=== PATIENT | female | born 1995 | race African-American/Black ===

== ENCOUNTER 2025-05-10 09:39 | Emergency (ER) | payer OTHER, SELFPAY ==
--- NOTE | ~2025-05-10 | XR_ITS ---
Examination: XR chest 1V Clinical History: Cough Comparison: None Technique: PA and Lateral Findings: Cardiomediastinal silhouette normal size and configuration. Lungs clear. No acute bony abnormality. IMPRESSION: 1. No acute cardiopulmonary findings. Reviewed, dictated and finalized at location R.
[2025-05-10 09:48] VITALS: BP 134/78; PULSE 66; RESP 20; TEMP 36.4; O2SAT 100
[2025-05-10 11:05] VITALS: O2SAT 99
[2025-05-10 11:40] LABS: Influenza A QL RT-PCR Negative (Negative); Influenza B QL RT-PCR Negative (Negative); RSV RNA, RT-PCR Negative (Negative); SARS-CoV-2 RNA PCR Negative (Negative)
--- NOTE | 2025-05-10 11:53 | ED.URI ---
HPI - URI/Sore Throat General Chief Complaint: Upper Respiratory Infection Stated Complaint: Cough, Upper Respiratory Issues Time Seen by Provider: 05/10/25 11:00 Source: patient Mode of arrival: ambulatory Limitations: no limitations History of Present Illness HPI Narrative: Patient presents with report of a cough and in general upper respiratory symptoms that started on SaturdayMay 02. She has had a frontal headache and rhinorrhea as well as congestion. She has been trialing [id number] medications such as a cold and cough congestion medication and TheraFlu but seems to be getting worse. Denies any sore throat. No distinctly no sick contacts however works at [employer] twice so interacts with a lot of people who might have been sick. No fevers or chills. Denies any underlying respiratory conditions. She does not smoke cigarettes but she does endorse smoking marijuana. She has had a cough that is alternate between being dry with occasionally productive of mucus. Denies any shortness of breath. She has developed some mild upper chest pain after coughing but states it's not too bad. States her PCP is through [facility]. Related Data Allergies Allergy/AdvReac Type Severity Reaction Status Date / Time tramadol Allergy Unknown Hives Verified 05/10/25 09:51 [facility] Social History Social History Smoking status: Never smoker Substance use type: marijuana Other substance usage details: smokes Occupation/Education: occupation Additional occupation/education comments: [employer] Ex[employer] Narrative: GENERAL: Well-appearing, well-nourished, and in no acute distress. HEAD: Normocephalic, atraumatic. EYES: Non injected, non icteric ENT: No epistaxis but there is nasal congestion. Gross auditory acuity intact. Very mild tenderness to palpation of maxillary sinuses NECK: Supple. No meningismus. CHEST: Speaking in full sentences. No respiratory distress. HEART: Regular rate and rhythm. . ABDOMEN: Obese but Soft, No rigidity or guarding. Not peritoneal EXTREMITIES: Normal range of motion. SKIN: Warm, dry, no rash. NEURO: No focal deficits. Alert and oriented. Answering questions. Following commands. Normal speech without aphasia or dysarthria. PSYCH: Normal mood and affect. Course Vital Signs Vital signs: Vital Signs Temperature 97.6 F 05/10/25 09:48 Pulse Rate 66 05/10/25 09:48 Respiratory Rate 20 05/10/25 09:48 Blood Pressure 134/78 05/10/25 09:48 Pulse Oximetry 100 05/10/25 09:48 Oxygen Delivery Room Air 05/10/25 09:48 Temperature 97.6 F 05/10/25 09:48 Pulse Rate 66 05/10/25 09:48 Respiratory Rate 20 05/10/25 09:48 Blood Pressure 134/78 05/10/25 09:48 Pulse Oximetry 99 05/10/25 11:05 Oxygen Delivery Room Air 05/10/25 11:05 MDM - URI/Sore Throat MDM Narrative Medical decision making narrative: Patient presents with report of generalized upper respiratory concerns in particular rhinorrhea, congestion, a cough, and a frontal headache. Has been using [id number]-[id number] medications. No fevers or chills. In the emergency department they are afebrile with vital signs within normal limits. No evidence of pneumonia. We discussed that this represents bronchitis and this is usually viral in atrial although her viral swab was negative. Noted that we do not treat this with antibiotics and there is also no role for steroids given no cor morbidities and no need for inhaler given no wheezes. She does seem to be experiencing sinusitis and given tomorrow will be day 10, we will give antibiotics for this however. Also Tessalon perles and Afrin in addition to OTC analgesic/antipyretics. Stable for discharge and advised follow-up. Provided a work note. Differential Diagnosis Differential diagnosis: Likely upper respiratory infection, sinusitis, viral infection, bronchitis, influenza and other (PNA) Lab Data Attestation: I reviewed the patient's lab results. Labs: Lab Results 05/10/25 Range/Units 10:58 Influenza A (RT-PCR) Negative (Negative) Influenza B (RT-PCR) Negative (Negative) RSV (RT-PCR) Negative (Negative) SARS-CoV-2 RNA (RT-PCR) Negative (Negative) Imaging Data Radiologist's impression: IMPRESSION: 1. No acute cardiopulmonary findings. Discharge Plan Discharge Clinical Impression: Acute viral bronchitis, Sinusitis Patient Disposition: Home Condition: Stable Instructions: Antibiotic Form, Sinusitis (ED), Acute Bronchitis (ED), Rhinosinusitis (ED), Viral Syndrome (ED), Acute Cough (ED) Additional Instructions: Acetaminophen/Tylenol (maximum 4000 mg per day) is safe to take with NSAIDs (ibuprofen/Motrin) for pain relief. Because her symptoms have been going on for nearly 10 days, you are being prescribed antibiotics. The benzonatate/Tessalon Perles can help with cough and the nasal spray has also been prescribed. follow-up with primary care physician. If you do not have 1 the name of a doctor is listed below. Return to the emergency department any new or worsening symptoms Patient Language: Kinyarwanda Prescriptions: New benzonatate 100 mg capsule 100 mg PO BID PRN (Reason: cough) Qty: 20 0RF acetaminophen 500 mg capsule 1,000 mg PO Q6H PRN (Reason: pain) Qty: 30 0RF ibuprofen 200 mg capsule 600 mg PO Q8H PRN (Reason: fever or pain) Qty: 30 0RF oxymetazoline 0.05 % mist 2 spray intranasal Q12H PRN (Reason: nasal congestion) 3 Days Qty: 15 0RF amoxicillin-pot clavulanate 875-125 mg tablet 1 tablet PO Q12H 7 Days Qty: 14 0RF Follow-up/Referrals: Kulwinder Draper MD [Physician, Family Practice] UNKNOWN,DOCTOR [Primary Care Provider] Stand Alone Forms: Work/School Release IP Time of Disposition: 12:11
[2025-05-10] MEDS: BENZONATATE 100 MG CAPSULE PO (12:16)
[2025-05-10] MEDS: ACETAMINOPHEN 500 MG TABLET 1000 MG PO (12:17)
[2025-05-10] MEDS: KETOROLAC 30 MG/ML VIAL (*BKC) 15 MG IM (12:17)
--- OUTSIDE RECORDS SUMMARY | 2025-05-10 14:01 | XMS_ITS | Clinical Summary ---
Author Organization [facility] Address [address] [place] [id number] Care Team Providers Care Buffet Waiter/Waitress Name Role Phone None, Provider MD Primary Care Provider Unavaila ble Allergies Active Allergy Reactions Criticality Noted Date Comments Tramadol Hives,Itching,Rash Medium 04/10/2018 Rash Medications Blood Glucose Monitoring Suppl (ONETOUCH VERIO FLEX SYSTEM) w/Device Kit see administration instructions. 1 Active Continuous Blood Gluc Transmit (DEXCOM G6 TRANSMITTER) Misc see administration instructions. 2 Active BAQSIMI ONE PACK 3 MG/DOSE Powder SPRAY 3MG INTO NOSE NEEDED 1 Active ONETOUCH VERIO test strip TEST BLOOD SUGAR FOUR TIMES DAILY 2 Active LEVEMIR FLEXTOUCH 100 UNIT/ML flextouch PEN 2 Active insulin lispro, 1 Unit Dial, 100 UNIT/ML injection (PEN) INJECT 50 TO 100 UNITS SUCUTANEOUSLY DIRECTED. START WITH 14 UNITS BEFORE MEALS. INCREASE DIRECTED 2 Active BD PEN NEEDLE AARON 2ND GEN 32G X 4 MM Misc 5 (five) times daily. 2 Active Lancets (ONETOUCH DELICA PLUS [id number]) Misc TEST FOUR TIMES DAILY DIRECTED 2 Active Continuous Blood Gluc Sensor (DEXCOM G6 SENSOR) Misc see administration instructions. 2 Active promethazine (PHENERGAN) 25 MG tablet Take 1 tablet (25 mg total) by mouth every 4 (four) hours as needed. FOR NAUSEA 3 Active methylPREDNISo JULI rodriguez, (MEDROL DOSEPAK) 4 MG tablet Take 1 tablet (4 mg total) by mouth daily. 6 TABLETS ON DAY ONE, 5 TABLETS DAY TWO, 4 TABLETS DAY THREE, 3 TABLETS DAY FOUR, 2 TABLETS DAY FIVE, AND 1 TABLET DAY SIX 1 each 4 Active metFORMIN (GLUCOPHAGE) 500 MG tablet Take 1 tablet (500 mg total) by mouth 2 (two) times daily with meals. 60 tablet 4 Active cyclobenzaprin e (FLEXERIL) 10 MG tablet Take 1 tablet (10 mg total) by mouth 3 (three) times daily as needed for Muscle Spasms. 16 tablet 4 Active naproxen (NAPROSYN) 375 MG tablet Take 1 tablet (375 mg total) by mouth 2 (two) times daily with meals. 60 tablet 5 Active HYDROcodone-ac etaminophen (NORCO) 5-325 MG tabletIndicati ons:Acute Pain < 3 Day Supply Take 1 tablet by mouth every 4 (four) hours. Indications: Acute Pain < 3 Day Supply 12 tablet 5 Active Family History Medical History Relation Comments Diabetes Father Hypertension Father Diabetes Mother Hypertension Mother Relation Status Comments Father Mother Social History Tobacco Use Types Packs/Day Years Used Date Smoking Tobacco: Never Smokeless Tobacco: Never Tobacco Cessation:Counseling Given: Not Answered Alcohol Use Standard Drinks/Week Comments Yes 0 (1 standard drink = 0.6 oz pur e alcohol) <1/week Comments No Sex and Gender Information Value Date Recorded Sex Assigned at Female 11/03/2024 4:49 PM CDT Legal Sex Female 7:03 PM CDT Gender Identity Not on file Sexual Orientation Not on file Last Filed Vital Signs Vital Sign Reading Time Taken Comments Blood Pressure 106/66 11/03/2024 10:23 PM CDT Pulse 95 11/03/2024 10:23 PM CDT Temperature 37.2 C (98.9 F) 11/03/2024 4:51 PM CDT Respiratory Rate 18 11/03/2024 10:23 PM CDT Oxygen Saturation 100% 11/03/2024 10:23 PM CDT Inhaled Oxygen Concentration - - Weight 93.4 kg (206 lb) 11/03/2024 4:51 PM CDT Height 160 cm (5' 3) 11/03/2024 4:51 PM CDT Body Mass Index 36.49 11/03/2024 4:51 PM CDT Plan of Treatment Health Maintenance Due Date Last Done Comments Cervical Cancer Screening Pap Smear (Age 21 to 29) Every 3 Years 1997 Cervical Cancer Screening 1997 Hepatitis B Vaccines (3 of 3 - 3-dose series) 04/13/1998 02/16/1998, 1997 Annual Physical 2000 Hepatitis C 2015 COVID-19 Vaccine (3 - season) 2025 04/23/2021, 04/02/2021 DTaP, Tdap and Td Vaccines (8 - Td or Tdap) 06/22/2030 06/22/2020, 03/02/2010, 10/07/2002, Additional history exists Meningococcal Vaccine Aged Out 03/02/2010 No tor chris eligible based on patient's age to complete this topic HPV Vaccines Completed 03/23/2013, 03/02/2010 Meningococcal B Vaccine Aged Out No l onger eligible based on patient's age to complete this topic Pneumococcal Vaccine: Pediatrics (0 to 5 Years) and At-Risk Patients (6 to 49 Years) Aged Out No longer eligible based on patient's age to complete this topic RSV Immunizations Under 20 Months Aged Out No longer eligible based on patient's age to complete this topic [place] [address] [place] [address] Care Teams Buffet Waiter/Waitress Relationship Specialty Start Date End Date None, Provider, PCP - General 03/21/19
== END 2025-05-10 12:26 | disposition home or self-care (01) ==
PROVIDERS: Emergency Provider Student in an Organized Health Care Education/Training Program
DX: J20.8 Acute bronchitis due to other specified organisms (principal); J32.9 Chronic sinusitis, unspecified; Z20.822 Contact with and (suspected) exposure to COVID-19
CPT/HCPCS: 71045; 87637; 96372; 99283; A9270; J1885